=== PATIENT | female | born 1975 | race American Indian/Alaskan Native ===

== ENCOUNTER 2019-02-16 12:57 | Emergency (ER) | payer BC ==
[2019-02-16] MEDS ORDERED: Sodium Chloride 0.9% 10 ML SDV IV PRN (12:59)
[2019-02-16] MEDS ORDERED: Sodium Chloride 0.9% 2.5 ML Syringe FLUSH PRN (12:59)
[2019-02-16] MEDS ORDERED: Sodium Chloride 0.9% 10 ML Syringe FLUSH PRN (12:59)
--- NOTE | 2019-02-16 13:13 | EDM.PDOC ---
ED HPI GENERAL MEDICAL PROBLEM - General Chief Complaint: Neuro Symptoms/Deficits Stated Complaint: COULD NOT WRITE WITH RIGHT HAND Time Seen by Provider: 02/16/19 12:58 Source of Information: Reports: Patient History Limitations: Reports: No Limitations - History of Present Illness INITIAL COMMENTS - FREE TEXT/NARRATIVE: History of present illness: []Patient started having a funny feeling on her right side 8 PM last night while she was at work, she noticed she had difficulty writing. Today she has weakness and lack of coordination in her right arm and leg. Patient denies any visual changes, chest pain, fevers, chills, cough, vomiting or diarrhea. Patient had a cold last week. Review of systems: As per history of present illness and below otherwise all systems reviewed and negative. Past medical history: As per history of present illness and as reviewed below otherwise noncontributory. Surgical history: As per history of present illness and as reviewed below otherwise noncontributory. Social history: No reported history of drug or alcohol abuse. Family history: As per history of present illness and as reviewed below otherwise noncontributory. Physical exam: General: Well developed, well nourished in NAD HEENT: Atraumatic, normocephalic, pupils reactive, negative for conjunctival pallor or scleral icterus, mucous membranes moist, throat clear, neck supple, nontender, trachea midline. Lungs: Clear to auscultation, breath sounds equal bilaterally, chest nontender. Heart: S1S2, regular, negative for clicks, rubs, or JVD. Abdomen: NABS, Soft, nondistended, nontender. Negative for masses or hepatosplenomegaly. Negative for costovertebral tenderness. Pelvis: Stable nontender. Genitourinary: Deferred. Rectal: Deferred. Extremities: Atraumatic, negative for cords or calf pain. Neurovascular unremarkable. Neuro: Awake, alert, oriented. Cranial nerves II through XII unremarkable. Cerebellum unremarkable. Motor and sensory unremarkable throughout. Right-sided upper extremity shows drift and ataxia with decreased sensation and mild 4/5 weakness. NIH score=4 Skin:warm and dry Diagnostics: CT showing- old lacunar left infarct and scattered hypodensities, CBC, chemistry , EKG, TSH, chest x-ray, CTA head and neck showing no clot Therapeutics: Potassium IV and oral ED Course: Consulted Dr. Barahona at [facility] and she recommended doing a CTA to justify transfer to [place] if the CT was negative she recommended going to [facility] for stroke and further workup. Impression: Right-sided weakness, hypokalemia, elevated troponin, old lacunar infarct on the left, scattered hypodensities noted concerning for MS Prescriptions: None Plan: Transfer to [facility] Dr. Puckett accepted Definitive disposition and diagnosis as appropriate pending reevaluation and review of above. - Related Data Allergies Allergy/AdvReac Type Severity Reaction Status Date / Time nitrofurantoin Allergy Other Verified 02/16/19 13:34 [From Furadantin] Sulfa (Sulfonamide Allergy Other Verified 02/16/19 13:34 Antibiotics) Home Meds: Home Meds Multivitamin [Multivitamins] 1 each PO DAILY 02/16/19 [History] ED ROS GENERAL - Review of Systems Review Of Systems: See Below ED EXAM, NEURO - Physical Exam Exam: See Below Course - Vital Signs Last Recorded V/S: Last Vital Signs Temp 98.0 F 02/16/19 13:36 Pulse 68 02/16/19 15:11 Resp 14 02/16/19 15:11 BP 173/96 H 02/16/19 15:11 Pulse Ox 97 02/16/19 15:11 - Orders/Labs/Meds Orders: Active Orders 24 hr Category Date Time Status Assess Neurological Status [RC] ASDIRECTED Care 02/16/19 12:59 Active Bedrest [RC] ASDIRECTED Care 02/16/19 12:59 Active Cardiac Monitoring [RC] . DIRECTED Care 02/16/19 12:59 Active EKG Documentation Completion [RC] STAT Care 02/16/19 12:59 Active Height and Weight [RC] UPON Care 02/16/19 12:59 Active Initiate Acute Stroke Protocol [RC] STAT Care 02/16/19 12:59 Active NIH Stroke Scale [RC] ASDIRECTED Care 02/16/19 12:59 Active Nursing Bedside Swallow Screen [RC] ASDIRECTED Care 02/16/19 12:59 Active Oxygen Therapy [RC] ASDIRECTED Care 02/16/19 12:59 Active Stroke Education, General [RC] Click to Edit Care 02/16/19 12:59 Active Vital Signs [RC] Q15M Care 02/16/19 12:59 Active Sodium Chloride 0.9% [Normal Saline] Med 02/16/19 12:59 Active 10 ml IV ASDIRECTED PRN Sodium Chloride 0.9% [Saline Flush] Med 02/16/19 12:59 Active 10 ml FLUSH ASDIRECTED PRN Sodium Chloride 0.9% [Saline Flush] Med 02/16/19 12:59 Active 2.5 ml FLUSH ASDIRECTED PRN Sodium Chloride 0.9% with KCl [Normal Saline with 40 Med 02/16/19 14:00 Active mEq KCl] 1,000 ml IV ASDIRECTED Peripheral IV Insertion Adult [OM.PC] Stat Ot 02/16/19 12:59 Ordered Peripheral IV Insertion Adult [OM.PC] Stat Ot 02/16/19 12:59 Ordered Medication Orders Potassium Chloride/Sodium Chloride (Normal Saline With 40 Meq Kcl) 1,000 mls @ 999 mls/hr IV ASDIRECTED JAVI Last Admin: 02/16/19 14:42 Dose: 250 mls/hr Sodium Chloride (Saline Flush) 10 ml FLUSH ASDIRECTED PRN PRN Reason: Keep Vein Open Sodium Chloride (Saline Flush) 2.5 ml FLUSH ASDIRECTED PRN PRN Reason: Keep Vein Open Sodium Chloride (Normal Saline) 10 ml IV ASDIRECTED PRN PRN Reason: IV Use Labs: Laboratory Tests 02/16/19 02/16/19 02/16/19 Range/Units 13:00 13:00 13:00 WBC 6.79 (4.0-11.0) K/uL RBC 4.58 (4.30-5.90) M/uL Hgb 14.5 (12.0-16.0) g/dL Hct 42.6 (36.0-46.0) % MCV 93.0 (80.0-98.0) fL MCH 31.7 (27.0-32.0) pg MCHC 34.0 (31.0-37.0) g/dL RDW Std Deviation 55.0 (28.0-62.0) fl RDW Coeff of Amaury 16 H (11.0-15.0) % Plt Count 271 (150-400) K/uL MPV 11.10 (7.40-12.00) fL Neut % (Auto) 66.6 (48.0-80.0) % Lymph % (Auto) 24.3 (16.0-40.0) % [place] % (Auto) 8.1 (0.0-15.0) % Eos % (Auto) 0.7 (0.0-7.0) % Baso % (Auto) 0.3 (0.0-1.5) % Neut # (Auto) 4.5 (1.4-5.7) K/uL Lymph # (Auto) 1.7 (0.6-2.4) K/uL [place] # (Auto) 0.6 (0.0-0.8) K/uL Eos # (Auto) 0.1 (0.0-0.7) K/uL Baso # (Auto) 0.0 (0.0-0.1) K/uL Nucleated RBC % 0.0 /100WBC Nucleated RBCs # 0 K/uL INR 0.96 APTT 25.0 (18.6-31.3) SEC Sodium 140 (136-145) mmol/L Potassium 2.2 L* (3.5-5.1) mmol/L Chloride 100 (98-107) mmol/L Carbon Dioxide 29.9 (21.0-32.0) mmol/L BUN 9 (7.0-18.0) mg/dL Creatinine 0.8 (0.6-1.0) mg/dL Est Cr Clr Drug Dosing 69.13 mL/min Estimated GFR (MDRD) > 60.0 ml/min Glucose 106 (74-106) mg/dL Calcium 8.6 (8.5-10.1) mg/dL Magnesium 2.0 (1.8-2.4) mg/dL Total Bilirubin 0.7 (0.2-1.0) mg/dL AST 29 (15-37) IU/L ALT 28 (14-63) IU/L Alkaline Phosphatase 105 (46-116) U/L Troponin I 0.122 H* (0.000-0.056) ng/mL Total Protein 8.5 H (6.4-8.2) g/dL Albumin 3.8 (3.4-5.0) g/dL Globulin 4.7 H (2.6-4.0) g/dL Albumin/Globulin Ratio 0.8 L (0.9-1.6) TSH 3rd Generation 5.35 H (0.36-3.74) uIU/mL Meds: Medications Generic Name Dose Route Start Last Admin Trade Name Freq PRN Reason Stop Dose Admin Potassium Chloride/Sodium Chloride 1,000 mls @ 999 mls/hr 02/16/19 14:00 04/29 14:42 Normal Saline With 40 Meq Kcl IV 250 mls/hr ASDIRECTED JAVI Administration Sodium Chloride 10 ml 02/16/19 12:59 Saline Flush FLUSH ASDIRECTED PRN Keep Vein Open Sodium Chloride 2.5 ml 02/16/19 12:59 Saline Flush FLUSH ASDIRECTED PRN Keep Vein Open Sodium Chloride 10 ml 02/16/19 12:59 Normal Saline IV ASDIRECTED PRN IV Use Discontinued Medications Generic Name Dose Route Start Last Admin Trade Name Freq PRN Reason Stop Dose Admin Iopamidol 85 ml 02/16/19 14:56 02/16/19 14:57 Isovue Multipack-370 (76%) IVPUSH 02/16/19 14:57 85 ml ONETIME ONE Administration Labetalol HCl 10 mg 02/16/19 14:51 02/16/19 15:26 Normodyne IVPUSH 02/16/19 14:52 Not Given ONETIME ONE Protocol Ondansetron HCl 4 mg 02/16/19 14:05 02/16/19 14:42 Zofran IVPUSH 02/16/19 14:06 4 mg ONETIME ONE Administration Potassium Chloride 40 meq 02/16/19 14:05 02/16/19 14:42 Klor-Con M20 PO 02/16/19 14:06 40 meq ONETIME ONE Administration Departure - Departure Time of Disposition: 15:48 Disposition: DC/Tfer to Acute Hospital 02 Condition: Good Clinical Impression: Right-sided muscle weakness, Hypokalemia, Elevated troponin, Abnormal head CT - Discharge Information *PRESCRIPTION DRUG MONITORING PROGRAM REVIEWED*: No *COPY OF PRESCRIPTION DRUG MONITORING REPORT IN PATIENT JOY: No Referrals: PCP,None [Primary Care Provider] - Forms: ED Department Discharge - My Orders Last 24 Hours: My Active Orders 02/16/19 12:59 Assess Neurological Status [RC] ASDIRECTED Bedrest [RC] ASDIRECTED Cardiac Monitoring [RC] . DIRECTED EKG Documentation Completion [RC] STAT Height and Weight [RC] UPON Initiate Acute Stroke Protocol [RC] STAT NIH Stroke Scale [RC] ASDIRECTED Nursing Bedside Swallow Screen [RC] ASDIRECTED Oxygen Therapy [RC] ASDIRECTED Stroke Education, General [RC] Click to Edit Vital Signs [RC] Q15M Sodium Chloride 0.9% [Normal Saline] 10 ml IV ASDIRECTED PRN Sodium Chloride 0.9% [Saline Flush] 10 ml FLUSH ASDIRECTED PRN Sodium Chloride 0.9% [Saline Flush] 2.5 ml FLUSH ASDIRECTED PRN Peripheral IV Insertion Adult [OM.PC] Stat Peripheral IV Insertion Adult [OM.PC] Stat 02/16/19 14:00 Sodium Chloride 0.9% with KCl [Normal Saline with 40 mEq KCl] 1,000 ml IV ASDIRECTED - Assessment/Plan Last 24 Hours: My Active Orders 02/16/19 12:59 Assess Neurological Status [RC] ASDIRECTED Bedrest [RC] ASDIRECTED Cardiac Monitoring [RC] . DIRECTED EKG Documentation Completion [RC] STAT Height and Weight [RC] UPON Initiate Acute Stroke Protocol [RC] STAT NIH Stroke Scale [RC] ASDIRECTED Nursing Bedside Swallow Screen [RC] ASDIRECTED Oxygen Therapy [RC] ASDIRECTED Stroke Education, General [RC] Click to Edit Vital Signs [RC] Q15M Sodium Chloride 0.9% [Normal Saline] 10 ml IV ASDIRECTED PRN Sodium Chloride 0.9% [Saline Flush] 10 ml FLUSH ASDIRECTED PRN Sodium Chloride 0.9% [Saline Flush] 2.5 ml FLUSH ASDIRECTED PRN Peripheral IV Insertion Adult [OM.PC] Stat Peripheral IV Insertion Adult [OM.PC] Stat 02/16/19 14:00 Sodium Chloride 0.9% with KCl [Normal Saline with 40 mEq KCl] 1,000 ml IV ASDIRECTED
--- NOTE | 2019-02-16 13:19 | CT ---
EXAMINATION: Non contrast CT head. Coronal and sagittal reformats. HISTORY: Stroke code FINDINGS: No evidence of intra or extra axial hemorrhage, mass, midline shift, hydrocephalus or edema. There is likely an old left periventricular lacunar infarct. There are a few very faint periventricular and subcortical white matter hypodensities also noted. No hypoattenuation changes in the major vascular territories to suggest acute infarct. No abnormal intracranial calcifications are detected. No evidence of substantial vascular calcifications. Paranasal sinuses and mastoid air cells are well aerated without substantial findings. Pituitary fossa appears unremarkable. Orbits and globes are symmetric. Calvarium is intact. No evidence of skull fracture. IMPRESSION: 1. No definite acute intracranial findings. 2. Probable small old left periventricular lacunar infarct. 3. There are a few very subtle periventricular and subcortical white matter hypodensities also noted, nonspecific, however given the patient's age MRI follow-up may be beneficial. Above findings were called to the ER at 1:16 PM.
[2019-02-16 13:46] LABS: CHLORIDE,CL 100 mmol/L (98-107); SODIUM,NA 140 mmol/L (136-145)
[2019-02-16] MEDS ORDERED: Sodium Chloride 0.9% with KCl 1,000 ML IV SCH (14:00)
[2019-02-16] MEDS ORDERED: Ondansetron 4 MG/2 ML SDV IVPUSH ONE (14:05)
[2019-02-16] MEDS ORDERED: Potassium Chloride 20 MEQ Tab.ER PO ONE (14:05)
[2019-02-16] MEDS ORDERED: Labetalol 100 MG/20 ML MDV IVPUSH ONE (14:51)
[2019-02-16] MEDS ORDERED: Iopamidol 755 MG/ML 500 ML Multipack Bottle IVPUSH ONE (14:56)
--- NOTE | 2019-02-16 15:44 | CT ---
CT ANGIOGRAM HEAD DATE: 02/16/2019 CLINICAL HISTORY: Patient with focal neurological deficits. TECHNIQUE: Standard helical CT image acquisition through the intracranial circulation following intravenous administration of contrast material with bolus tracking. Multiplanar reconstructed images were performed and interpreted. COMPARISON: CT same day. FINDINGS: There is no cerebral aneurysm or large vessel occlusion. The right internal carotid artery is normal. The right middle cerebral artery and its branches are normal. The right anterior cerebral artery and its branches are normal. The left internal carotid artery is normal. The left middle cerebral artery and its branches are normal. The left anterior cerebral artery and its branches are normal. The anterior communicating artery is well visualized and appears normal. The right vertebral artery and PICA are normal. The left vertebral artery and PICA are normal. The left vertebral artery is dominant. The basilar artery is patent and appears normal. The right posterior cerebral artery is normal. The left posterior cerebral artery is normal. The visualized venous structures are patent. IMPRESSION: Normal CT angiogram of the head. Please note that all CT scans at this facility use dose modulation, iterative reconstruction, and/or weight-based dosing when appropriate to reduce radiation dose to as low as reasonably achievable. Dictated by: Carlos Welch MD @ 02/16/2019 15:41:47 (Electronically Signed)
== END 2019-02-16 16:40 ==
LOC: MW.ED 12:57
DX: E87.6 Hypokalemia (principal); M62.81 Muscle weakness (generalized); R79.89 Other specified abnormal findings of blood chemistry; I25.2 Old myocardial infarction; R93.0 Abnormal findings on diagnostic imaging of skull and head, not elsewhere classified; Z88.1 Allergy status to other antibiotic agents; Z88.2 Allergy status to sulfonamides
CPT/HCPCS: 36415; 70450; 70496; 80053; 83735; 84443; 84484; 85025; 85610; 85730; 93005; 96365; 96366; 96375; 99285; A9270; J2405; J3480; J3490; Q9967

== ENCOUNTER 2020-01-11 16:17 | Emergency (ER) | payer OTHER ==
[2020-01-11] MEDS ORDERED: Sodium Chloride 0.9% 1,000 ML IV ONE (16:41)
[2020-01-11 16:57] LABS: BLOOD UREA NITROGEN,BUN 5 mg/dL (7.0-18.0); CARBON DIOXIDE,CO2 24.3 mmol/L (21.0-32.0); CHLORIDE,CL 103 mmol/L (98-107); GLUCOSE RANDOM 143 mg/dL (74-106); POTASSIUM,K 3.6 mmol/L (3.5-5.1); SODIUM,NA 139 mmol/L (136-145)
--- NOTE | 2020-01-11 17:31 | EDM.PDOC ---
ED [facility] GENERAL MEDICAL PROBLEM - General Chief Complaint: Gastrointestinal Problem Stated Complaint: REFERRED BY Time Seen by Provider: 01/11/20 16:26 - History of Present Illness INITIAL COMMENTS - FREE TEXT/NARRATIVE: HISTORY AND PHYSICAL: History of present illness: 44-year-old female with a past medical history of clotting disorder that causes her to be hypercoagulable, she does not know the name, recent stroke, presents to the emergency department with vaginal bleeding. Patient reports that she has had heavy vaginal bleeding for the last 5 days or so. She saw her primary care doctor who brigida her H&H and found her to be severely anemic. She was sent to the emergency department for further evaluation given that she is anticoagulated on Eliquis. Outpatient labs that she read so shows that her hemoglobin is 8.4, hematocrit is 29.0, and her platelets are normal at 402. She is currently on Eliquis 5 mg twice daily. She also is treated for her hyperlipidemia with Lipitor and her high blood pressure with amlodipine. She also takes metoprolol. She has had painless bleeding. It has been quite heavy. She denies any other associated signs or symptoms. No other modifying, aggravating or alleviating factors. Review of systems: A 10-point review of systems, other than pertinent positives and negatives as stated per HPI, is otherwise negative. Past medical history: As per history of present illness and as reviewed below otherwise noncontributory. Surgical history: As per history of present illness and as reviewed below otherwise noncontributory. Social history: No reported history of drug or alcohol abuse. Family history: As per history of present illness and as reviewed below otherwise noncontributory. Physical exam: VITAL SIGNS: Reviewed. GENERAL: The patient appears to be anxious and is pale. She is in mild to moderate distress. HEAD: No signs of head trauma. EYES: Pupils are equal. Extraocular motions intact. EARS: Hearing grossly intact. MOUTH: Oropharynx is normal. NECK: No adenopathy, no JVD. CHEST: Chest with clear breath sounds bilaterally. No wheezes, rales, or rhonchi. CARDIAC: Regular rate and rhythm. Normal S1 and S2, without murmurs, gallops, or rubs. VASCULAR: Peripheral pulses normal and equal in all extremities. ABDOMEN: Soft, without detectable tenderness. No sign of distention. No rebound or guarding, and no masses palpated. MUSCULOSKELETAL: Good range of motion of all major joints. Extremities without clubbing, cyanosis or edema. NEUROLOGIC EXAM: Alert and oriented x 3. No focal sensory or motor deficits. Speech normal. Follows commands. PSYCHIATRIC: Mood normal. SKIN: No rash or lesions. The skin is pale. Initial Differential Diagnosis & Plan: Dysfunctional uterine bleeding, , over anticoagulation, acute renal failure causing abnormal metabolism of her drugs, acute liver failure causing abnormal metabolism of her drugs. The patient is anticoagulated and has vaginal bleeding. I do not feel it appropriate to give TXA in the situation as I do not know her clotting disorder or her hypercoagulability problem. She is quite anemic. I will send CBC, type and screen, and check a status. I will also check her renal function and liver function. Definitive disposition and diagnosis as appropriate pending reevaluation and review of above. lower abdomen Pain Score (Numeric/FACES): 2 - Related Data Allergies Allergy/AdvReac Type Severity Reaction Status Date / Time nitrofurantoin Allergy Other Verified 01/11/20 16:43 [From Furadantin] Sulfa (Sulfonamide Allergy Other Verified 01/11/20 16:43 Antibiotics) Home Meds: Home Meds Multivitamin [Multivitamins] 1 each PO DAILY 02/16/19 [History] Amitriptyline [Elavil] 1 tab PO DAILY 01/11/20 [History] Apixaban [Eliquis] 5 mg PO BID 01/11/20 [History] Cyanocobalamin (Vitamin B-12) [Vitamin B-12] 2 dose PO DAILY 01/11/20 [History] Metoprolol Succinate [[place] Sprinkle] 1 tab PO DAILY 01/11/20 [History] Potassium Chloride 1 tab PO DAILY 01/11/20 [History] Tranexamic Acid [Lysteda] 1,300 mg PO TID #30 tablet 01/11/20 [Rx] Past Medical History HEENT History: Reports: None Cardiovascular History: Reports: None, Hypertension Respiratory History: Reports: None Gastrointestinal History: Reports: None Genitourinary History: Reports: None [employer] History: Reports: None Musculoskeletal History: Reports: None Neurological History: Reports: CVA Psychiatric History: Reports: None Endocrine/Metabolic History: Reports: Other (See Below) Other Endocrine/Metabolic History: lupus Hematologic History: Reports: Other (See Below) Other Hematologic History: "clotting disorder" Oncologic (Cancer) History: Reports: None Dermatologic History: Reports: None - Infectious Disease History Infectious Disease History: Reports: Chicken Pox, Shingles - Past Surgical History Head Surgeries/Procedures: Reports: None HEENT Surgical History: Reports: None Cardiovascular Surgical History: Reports: None Respiratory Surgical History: Reports: None GI Surgical History: Reports: Cholecystectomy Female Surgical History: Reports: None Endocrine Surgical History: Reports: None Neurological Surgical History: Reports: None Musculoskeletal Surgical History: Reports: None Oncologic Surgical History: Reports: None Dermatological Surgical History: Reports: None Social & Family History - Family History Family Medical History: Noncontributory - Tobacco Use Smoking Status *Q: Current Every Day Smoker Years of Tobacco use: 20 Packs/Tins Daily: 0.4 - Caffeine Use Caffeine Use: Reports: None - Recreational Drug Use Recreational Drug Use: No ED ROS GENERAL - Review of Systems Review Of Systems: Unable To Obtain (noted) Reason Not Obtained: noted ED EXAM, RENAL/ - Physical Exam Exam: Not Obtained (see note) Course - Vital Signs Last Recorded V/S: Last Vital Signs Temp 96.2 F L 01/11/20 16:46 Pulse 116 H 01/11/20 16:46 Resp 16 01/11/20 16:46 BP 149/103 H 01/11/20 16:46 Pulse Ox 99 01/11/20 16:46 - Orders/Labs/Meds Orders: Active Orders 24 hr Category Date Time Status EKG 12 Lead [EKG Documentation Completion] [RC] STAT Care 01/11/20 16:40 Active TRAINING ANALYST lmtd or bladder [Pelvis Non OB Ltd] [US] Stat Exams 01/11/20 16:47 Taken Labs: Laboratory Tests 01/11/20 01/11/20 01/11/20 Range/Units 16:28 16:28 16:28 WBC 8.78 (4.0-11.0) K/uL RBC 3.49 L (4.30-5.90) M/uL Hgb 8.5 L (12.0-16.0) g/dL Hct 29.2 L (36.0-46.0) % MCV 83.7 (80.0-98.0) fL MCH 24.4 L (27.0-32.0) pg MCHC 29.1 L (31.0-37.0) g/dL RDW Std Deviation 57.2 (28.0-62.0) fl RDW Coeff of Amaury 19 H (11.0-15.0) % Plt Count 434 H (150-400) K/uL MPV 10.40 (7.40-12.00) fL Neut % (Auto) 71.8 (48.0-80.0) % Lymph % (Auto) 18.3 (16.0-40.0) % Navarro % (Auto) 8.1 (0.0-15.0) % Eos % (Auto) 1.5 (0.0-7.0) % Baso % (Auto) 0.3 (0.0-1.5) % Neut # (Auto) 6.3 H (1.4-5.7) K/uL Lymph # (Auto) 1.6 (0.6-2.4) K/uL Navarro # (Auto) 0.7 (0.0-0.8) K/uL Eos # (Auto) 0.1 (0.0-0.7) K/uL Baso # (Auto) 0.0 (0.0-0.1) K/uL Nucleated RBC % 0.0 /100WBC Nucleated RBCs # 0 K/uL INR 1.04 APTT 25.7 (18.6-31.3) SEC Sodium 139 (136-145) mmol/L Potassium 3.6 (3.5-5.1) mmol/L Chloride 103 (98-107) mmol/L Carbon Dioxide 24.3 (21.0-32.0) mmol/L BUN 5 L (7.0-18.0) mg/dL Creatinine 0.9 (0.6-1.0) mg/dL Est Cr Clr Drug Dosing TNP Estimated GFR (MDRD) > 60.0 ml/min Glucose 143 H (74-106) mg/dL Calcium 8.5 (8.5-10.1) mg/dL Total Bilirubin 0.5 (0.2-1.0) mg/dL AST 100 H (15-37) IU/L ALT 68 H (14-63) IU/L Alkaline Phosphatase 142 H (46-116) U/L Total Protein 8.4 H (6.4-8.2) g/dL Albumin 3.6 (3.4-5.0) g/dL Globulin 4.8 H (2.6-4.0) g/dL Albumin/Globulin Ratio 0.8 L (0.9-1.6) Blood Type Antibody Screen 01/11/20 Range/Units 16:50 WBC (4.0-11.0) K/uL RBC (4.30-5.90) M/uL Hgb (12.0-16.0) g/dL Hct (36.0-46.0) % MCV (80.0-98.0) fL MCH (27.0-32.0) pg MCHC (31.0-37.0) g/dL RDW Std Deviation (28.0-62.0) fl RDW Coeff of Amaury (11.0-15.0) % Plt Count (150-400) K/uL MPV (7.40-12.00) fL Neut % (Auto) (48.0-80.0) % Lymph % (Auto) (16.0-40.0) % Navarro % (Auto) (0.0-15.0) % Eos % (Auto) (0.0-7.0) % Baso % (Auto) (0.0-1.5) % Neut # (Auto) (1.4-5.7) K/uL Lymph # (Auto) (0.6-2.4) K/uL Navarro # (Auto) (0.0-0.8) K/uL Eos # (Auto) (0.0-0.7) K/uL Baso # (Auto) (0.0-0.1) K/uL Nucleated RBC % /100WBC Nucleated RBCs # K/uL INR APTT (18.6-31.3) SEC Sodium (136-145) mmol/L Potassium (3.5-5.1) mmol/L Chloride (98-107) mmol/L Carbon Dioxide (21.0-32.0) mmol/L BUN (7.0-18.0) mg/dL Creatinine (0.6-1.0) mg/dL Est Cr Clr Drug Dosing Estimated GFR (MDRD) ml/min Glucose (74-106) mg/dL Calcium (8.5-10.1) mg/dL Total Bilirubin (0.2-1.0) mg/dL AST (15-37) IU/L ALT (14-63) IU/L Alkaline Phosphatase (46-116) U/L Total Protein (6.4-8.2) g/dL Albumin (3.4-5.0) g/dL Globulin (2.6-4.0) g/dL Albumin/Globulin Ratio (0.9-1.6) Blood Type O POSITIVE Antibody Screen NEGATIVE Meds: Medications Discontinued Medications Generic Name Dose Route Start Last Admin Trade Name Freq PRN Reason Stop Dose Admin Sodium Chloride 1,000 mls @ 1,000 mls/hr 01/11/20 16:41 01/11/20 16:57 Normal Saline IV 01/11/20 17:40 1,000 mls/hr .Bolus ONE Administration Tranexamic Acid 1,000 mg/ 110 mls @ 600 mls/hr 01/11/20 17:48 Sodium Chloride IV 01/11/20 17:58 ONETIME ONE - Re-Assessments/Exams Free Text/Narrative Re-Assessment/Exam: 01/11/20 17:[address] Pate, [employer] physician, and she agrees that the patient should have an ultrasound, should be started on TXA, and go home on Lysteda. She recommends follow-up this week in her clinic. We will arrange that. 01/11/20 18:20 The ultrasound does not show evidence of high risk features for admission or need for emergent hysterectomy. The patient will follow up with the E[employer] this week. We have given her an iron infusion and an infusion of TXA to stop her bleeding and to help with her anemia. She does not require blood transfusion at this point. Her EKG is nonischemic. She does not have electrolyte abnormalities. Her INR and PTT are not significantly elevated to indicate that she has a coagulopathy. There is no evidence of bleeding diathesis. 12 lead EKG interpretation Obtained: January 11, 2020 at 1654 hrs. Rhythm: Sinus Rate: 99 [place]: Normal Intervals: Normal ST/T Segments: T wave inversions in leads V1 through V6. Interpretation: Highness rhythm with T wave inversions in leads V1 through V6. My diagnostic impression: 1. Dysfunctional uterine bleeding 2. Acute hemorrhagic anemia not requiring blood transfusion 3. History of clotting disorder unclear type requiring anticoagulation to prevent stroke 4. Adverse bleeding events secondary to therapeutic anticoagulation Departure - Departure Time of Disposition: 18:26 Disposition: Home, Self-Care 01 Clinical Impression: Dysfunctional uterine bleeding, Anticoagulants causing adverse effect in therapeutic use, Anemia - Discharge Information *PRESCRIPTION DRUG MONITORING PROGRAM REVIEWED*: Not Applicable *COPY OF PRESCRIPTION DRUG MONITORING REPORT IN PATIENT JOY: Not Applicable Prescriptions: Tranexamic Acid [Lysteda] 1,300 mg PO TID #30 tablet Instructions: Anemia, Dysfunctional Uterine Bleeding Referrals: Tonie Lemus MD [Primary Care Provider] - Maryanne Silva MD [Physician] - Forms: ED Department Discharge Additional Instructions: The following information is given to patients seen in the emergency department who are being discharged to home. This information is to outline your options for follow-up care. We provide all patients seen in our emergency department with a follow-up referral. The need for follow-up, as well as the timing and circumstances, are variable depending upon the specifics of your emergency department visit. If you don't have a primary care physician on staff, we will provide you with a referral. We always advise you to contact your personal physician following an emergency department visit to inform them of the circumstance of the visit and for follow-up with them and/or the need for any referrals to a consulting specialist. The emergency department will also refer you to a specialist when appropriate. This referral assures that you have the opportunity for follow-up care with a specialist. All of these measure are taken in an effort to provide you with optimal care, which includes your follow-up. Under all circumstances we always encourage you to contact your private physician who remains a resource for coordinating your care. When calling for follow-up care, please make the office aware that this follow-up is from your recent emergency room visit. If for any reason you are refused follow-up, please contact the [facility] Emergency Department at and asked to speak to the emergency department charge nurse. Thank you for coming to [facility] emergency department today. It was Dr. Marley's pleasure to take care of you. Your labs show that you are anemic but you are not getting worse. We have given you a medication that will help stop your bleeding. This is called Lysteda (TXA). We have also given you an iron injection in the emergency department to help you build more red blood cells at home. Please follow-up this week with the EYE [employer]. Dr. Silva was consulted on your case today and would like you to follow-up with her this week in clinic. Please return immediately to the emergency department for fever , feeling like you are going to pass out, worsening bleeding, or any other concerns. [facility] Dr. Silva's office [address] [place] [id number] Sepsis Event Note - Evaluation Sepsis Screening Result: No Definite Risk - Focused Exam Vital Signs: Vital Signs Temp Pulse Resp BP Pulse Ox 01/11/20 16:46 96.2 F L 116 H 16 149/103 H 99 Date Exam was Performed: 01/11/20 Time Exam was Performed: 18:10 - My Orders Last 24 Hours: My Active Orders 01/11/20 16:40 EKG 12 Lead [EKG Documentation Completion] [RC] STAT 01/11/20 16:47 TRAINING ANALYST lmtd or bladder [Pelvis Non OB Ltd] [US] Stat - Assessment/Plan Last 24 Hours: My Active Orders 01/11/20 16:40 EKG 12 Lead [EKG Documentation Completion] [RC] STAT 01/11/20 16:47 TRAINING ANALYST lmtd or bladder [Pelvis Non OB Ltd] [US] Stat
[2020-01-11] MEDS ORDERED: Tranexamic Acid 1,000 MG in Sodium Chloride 0.9% 100 ML IV ONE (17:48)
[2020-01-11] MEDS ORDERED: Iron Sucrose Complex 100 MG/5 ML SDV IVPUSH ONE (18:11)
--- NOTE | 2020-01-11 18:24 | US ---
INDICATION: Heavy bleeding, on blood thinners TECHNIQUE: Ultrasound pelvis transabdominal. Real-time ross scale sonographic images with color Doppler imaging of the ovaries were obtained. COMPARISON: None FINDINGS: Uterus: 8.8 x 4.4 x 6.1 cm. There is a hypoechoic intramural fibroid along the left aspect of the uterus measuring 2.5 cm. Endometrium: 3 mm. No sign of endometrial mass or fluid present. Right ovary: 2.3 x 1.8 x 2.6 cm. Color Doppler exam of the right ovary is limited. Left ovary: 2.6 x 1.8 x 1.3 cm. Color Doppler exam of the left ovary is limited. Cul-de-sac: No significant ascites noted. IMPRESSION: 1. There is a hypoechoic intramural fibroid along the left aspect of the uterus measuring 2.5 cm. Dictated by Martín Rogel MD @ 01/11/2020 6:21:47 PM Dictated by: Martín Rogel MD @ 01/11/2020 18:22:07 (Electronically Signed)
[2020-01-11] MEDS ORDERED: Ondansetron 4 MG/2 ML SDV IVPUSH ONE (18:42)
== END 2020-01-11 19:08 | disposition home or self-care (01) ==
LOC: MW.ED 16:17
DX: N93.8 Other specified abnormal uterine and vaginal bleeding (principal); T45.515A Adverse effect of anticoagulants, initial encounter; D64.9 Anemia, unspecified; I10 Essential (primary) hypertension; F17.210 Nicotine dependence, cigarettes, uncomplicated; Z88.1 Allergy status to other antibiotic agents; Z88.2 Allergy status to sulfonamides; Z79.899 Other long term (current) drug therapy; Z86.73 Personal history of transient ischemic attack (TIA), and cerebral infarction without residual deficits
CPT/HCPCS: 36415; 76857; 80053; 83550; 85025; 85610; 85730; 86850; 86900; 86901; 93005; 96374; 96375; 99284; J1756; J2405; J7030; J7050; 99283

== ENCOUNTER 2020-10-16 17:30 | Emergency (ER) | payer OTHER ==
[2020-10-16 18:42] LABS: BLOOD UREA NITROGEN,BUN 5 mg/dL (7.0-18.0); CARBON DIOXIDE,CO2 21.1 mmol/L (21.0-32.0); CHLORIDE,CL 102 mmol/L (98-107); GLUCOSE RANDOM 105 mg/dL (74-106); POTASSIUM,K 2.9 mmol/L (3.5-5.1); SODIUM,NA 138 mmol/L (136-145)
[2020-10-16] MEDS ORDERED: Potassium Chloride 10% 20 MEQ/15 ML Soln 30 ML UD Cup PO ONE (19:19)
--- NOTE | 2020-10-16 22:38 | EDM.PDOC ---
ED HPI GENERAL MEDICAL PROBLEM - General Chief Complaint: General Stated Complaint: MERRY REFERRAL Time Seen by Provider: 10/16/20 19:19 - History of Present Illness INITIAL COMMENTS - FREE TEXT/NARRATIVE: CHIEF COMPLAINT(S): Sent in by primary care physician HISTORY OF PRESENT ILLNESS: This is a 45-year-old woman with a past medical history of lupus and prior CVA who comes to the emergency department with a chief complaint of sent in by primary care physician. The patient states that she was sent in by Dr. Lemus for a blood transfusion and was told her potassium was low. She states that she woke up this morning and started to feel tingling and pain in her hands and feet. She describes the pain in her hands and feet as like stabbing sensation rated 4-5 out of 10. She denies any radiation of this pain. She has not yet tried anything for the pain therefore there are no relieving factors. There is no exacerbating symptoms of this pain. She denies any injury to her hands or feet she denies any chest pain, shortness of breath, diaphoresis, nausea or vomiting. She states that she is mildly constipated but denies any melena or hematochezia. She denies any prior history of DVT or PE. She denies any dizziness or syncope. REVIEW OF SYSTEMS: Constitutional: Denies fever, chills. Eyes: Denies eye pain Ears, Nose, Mouth, & Throat: Denies earache Cardiovascular: Denies chest pain Respiratory: Denies shortness of breath Gastrointestinal: Denies Nausea, vomiting, diarrhea, hematochezia. Genitourinary: Denies hematuria Skin:Denies a rash MSK: Positive for hand and foot pain Neurological: Positive for tingling in hands and feet denies blurred vision, numbness, weakness Psychiatric: Denies depression PAST MEDICAL HISTORY: As per history of present illness and as reviewed below otherwise noncontributory. SURGICAL HISTORY: As per history of present illness and as reviewed below otherwise noncontributory. SOCIAL HISTORY: As per history of present illness and as reviewed below otherwise noncontributory. FAMILY HISTORY: As per history of present illness and as reviewed below otherwise noncontributory. EXAMINATION OF ORGAN SYSTEMS/BODY AREAS: Constitutional: Blood pressure was 111/70, heart rate 112, respiratory rate 15 with an oxygen saturation of 98% on room air. Temperature 36.3 General: Overall well-appearing woman who is in no acute distress. Psychiatric: Appropriate mood and affect. Eyes: No scleral icterus or conjunctival erythema ENMT: Moist mucous membranes. No pharyngeal erythema Cardiovascular: Regular, rate, and rhythm. No gallops, murmurs, or rubs. Bilateral upper extremity pulses symmetric and intact. No peripheral edema. No JVD. Respiratory: Lungs clear to auscultation bilaterally. No wheezes, rales, or rhonchi. Gastrointestinal: Soft, non-tender, non-distended. Normoactive bowel sounds Genitourinary: No suprapubic tenderness Musculoskeletal: Normal range of motion. There is mild tenderness to the feet and hands bilaterally without any laterality. There is no obvious changes or deformity. Skin: No lesions or abrasions. Neurological: Alert, GCS 15 strength and sensation grossly intact in upper and lower extremities bilaterally MEDICAL DECISION MAKING AND COURSE IN THE ED WITH INTERPRETATION/REVIEW OF DIAGNOSTIC STUDIES: This is a 45-year-old woman with a past medical history of lupus and CVA who comes to the emergency department with bilateral hand and foot pain sent in by prior primary care addition for a blood transfusion hypokalemia. There were no labs sent with the patient therefore we will repeat labs here and reevaluate. EKG was obtained which did not reveal any acute signs of ischemia or signs of hyper or hypokalemia. Laboratory: CBC reveals a leukocytosis of 13.93 with neutrophilic predominance without any segmented neutrophils or left shift. Hemoglobin is 9.4 and hematocrit is 30.5. Her hemoglobin appears to be increased from prior at 01/11/2020 CMP reveals hypokalemia 2.9, hypocalcemia at 8.4, mild AST elevation at 124 and total bilirubin of 2.5 with alkaline phosphatase of 307. The patient does have a history of transaminitis and her bilirubin is mildly elevated. There is hypoalbuminemia at 2.9. Time: 1950 Twelve-lead EKG interpreted by myself. Normal sinus rhythm at a rate of 99beats per minute. Left axis. MI interval is 134ms. QRS duration is 99ms. ST segments are normal without elevations or depressions. There are T wave inversions in leads III, aVF, V2, V3, V4, V5, V6 no Q waves present. Hypertrophy not noted. No changes demonstrated from prior EKG dated 01/11/2020. Interpretation: The sinus rhythm with inferior and lateral T wave inversions unchanged from prior After labs I did provide the patient with potassium by mouth. We will obtain an EKG and repeat potassium after a period of observation. I do not believe the patient requires any transfusion at this time or admission as the patient denies any melena, hematochezia, hematemesis or vaginal bleeding. Her hemoglobin does appear to be improved from prior. Although her bilirubin is elevated she denies any abdominal pain and has no icterus on examination. This can be followed up outpatient. Repeat potassium was 4.7. On reevaluation after potassium supplementation the patient symptoms had completely resolved. I did discuss her at this time I do not believe she needs to be admitted. I discussed with her that she is stable for discharge. She is to follow-up with her primary care physician for further evaluation and treatment. She was amenable discharge and had no further questions. Repeat EKG did not reveal any changes. Time: 2226 Twelve-lead EKG interpreted by myself. Sinus tachycardia at a rate of 106beats per minute. Left axis. MI interval is 133ms. QRS duration is 93ms. ST segments are normal without elevations or depressions. There are T wave inversions in leads II, 3, aVF, V2 through V6 no Q waves present. No changes demonstrated from prior EKG dated 01/11/2020. Interpretation: Sinus rhythm with inferior and lateral T wave inversions unchanged from prior DISPOSITION: The patient was discharged home in stable condition. The patient will follow up with PCP within 2 to 3 days CONDITION: Fair PROCEDURES: None FINAL IMPRESSION(S)/DIAGNOSES: 1. Acute bilateral hand and foot pain likely secondary to hypokalemia 2. Acute hypokalemia Dick Andrews M.D. Allextremities Pain Score (Numeric/FACES): 7 - Related Data Allergies Allergy/AdvReac Type Severity Reaction Status Date / Time nitrofurantoin Allergy Other Verified 10/16/20 17:41 [From Furadantin] Sulfa (Sulfonamide Allergy Other Verified 10/16/20 17:41 Antibiotics) Home Meds: Home Meds Multivitamin [Multivitamins] 1 each PO DAILY 02/16/19 [History] Apixaban [Eliquis] 5 mg PO BID 01/11/20 [History] Cyanocobalamin (Vitamin B-12) [Vitamin B-12] 2 dose PO DAILY 01/11/20 [History] Metoprolol Succinate [[place] Sprinkle] 1 tab PO DAILY 01/11/20 [History] Potassium Chloride 1 tab PO DAILY 01/11/20 [History] Past Medical History HEENT History: Reports: None Cardiovascular History: Reports: None, Hypertension Respiratory History: Reports: None Gastrointestinal History: Reports: None Genitourinary History: Reports: None GRAIN MIXER History: Reports: None Musculoskeletal History: Reports: None Neurological History: Reports: CVA Psychiatric History: Reports: None Endocrine/Metabolic History: Reports: Other (See Below) Other Endocrine/Metabolic History: lupus Hematologic History: Reports: Other (See Below) Other Hematologic History: "clotting disorder" Oncologic (Cancer) History: Reports: None Dermatologic History: Reports: None - Infectious Disease History Infectious Disease History: Reports: Chicken Pox, Shingles - Past Surgical History Head Surgeries/Procedures: Reports: None HEENT Surgical History: Reports: None Cardiovascular Surgical History: Reports: None Respiratory Surgical History: Reports: None GI Surgical History: Reports: Cholecystectomy Female Surgical History: Reports: None Endocrine Surgical History: Reports: None Neurological Surgical History: Reports: None Musculoskeletal Surgical History: Reports: None Oncologic Surgical History: Reports: None Dermatological Surgical History: Reports: None Social & Family History - Family History Family Medical History: No Pertinent Family History - Tobacco Use Tobacco Use Status *Q: Never Tobacco User - Caffeine Use Caffeine Use: Reports: None ED ROS GENERAL - Review of Systems Review Of Systems: See Below ED EXAM, GENERAL - Physical Exam Exam: See Below Course - Vital Signs Last Recorded V/S: Last Vital Signs Temp 36.1 C 10/16/20 22:48 Pulse 108 H 10/16/20 22:48 Resp 16 10/16/20 22:48 BP 115/79 10/16/20 22:48 Pulse Ox 99 10/16/20 22:48 - Orders/Labs/Meds Labs: Laboratory Tests 10/16/20 10/16/20 10/16/20 Range/Units 17:58 17:58 17:58 WBC 13.93 H (4.0-11.0) K/uL RBC 3.32 L (4.30-5.90) M/uL Hgb 9.4 L (12.0-16.0) g/dL Hct 30.5 L (36.0-46.0) % MCV 91.9 (80.0-98.0) fL MCH 28.3 (27.0-32.0) pg MCHC 30.8 L (31.0-37.0) g/dL RDW Std Deviation 61.5 (28.0-62.0) fl RDW Coeff of Amaury 18 H (11.0-15.0) % Plt Count 464 H (150-400) K/uL MPV 9.90 (7.40-12.00) fL Neut % (Auto) 85.7 H (48.0-80.0) % Lymph % (Auto) 9.0 L (16.0-40.0) % Mclennan % (Auto) 4.6 (0.0-15.0) % Eos % (Auto) 0.6 (0.0-7.0) % Baso % (Auto) 0.1 (0.0-1.5) % Neut # (Auto) 11.9 H (1.4-5.7) K/uL Lymph # (Auto) 1.3 (0.6-2.4) K/uL Mclennan # (Auto) 0.6 (0.0-0.8) K/uL Eos # (Auto) 0.1 (0.0-0.7) K/uL Baso # (Auto) 0.0 (0.0-0.1) K/uL Nucleated RBC % 0.0 /100WBC Nucleated RBCs # 0 K/uL INR 1.40 Sodium 138 (136-145) mmol/L Potassium 2.9 L (3.5-5.1) mmol/L Chloride 102 (98-107) mmol/L Carbon Dioxide 21.1 (21.0-32.0) mmol/L BUN 5 L (7.0-18.0) mg/dL Creatinine 0.9 (0.6-1.0) mg/dL Est Cr Clr Drug Dosing 58.83 mL/min Estimated GFR (MDRD) > 60.0 ml/min Glucose 105 (74-106) mg/dL Calcium 8.4 L (8.5-10.1) mg/dL Total Bilirubin 2.5 H (0.2-1.0) mg/dL AST 124 H (15-37) IU/L ALT 34 (14-63) IU/L Alkaline Phosphatase 307 H (46-116) U/L Total Protein 8.4 H (6.4-8.2) g/dL Albumin 2.9 L (3.4-5.0) g/dL Globulin 5.5 H (2.6-4.0) g/dL Albumin/Globulin Ratio 0.5 L (0.9-1.6) Blood Type Antibody Screen 10/16/20 10/16/20 Range/Units 17:58 21:24 WBC (4.0-11.0) K/uL RBC (4.30-5.90) M/uL Hgb (12.0-16.0) g/dL Hct (36.0-46.0) % MCV (80.0-98.0) fL MCH (27.0-32.0) pg MCHC (31.0-37.0) g/dL RDW Std Deviation (28.0-62.0) fl RDW Coeff of Amaury (11.0-15.0) % Plt Count (150-400) K/uL MPV (7.40-12.00) fL Neut % (Auto) (48.0-80.0) % Lymph % (Auto) (16.0-40.0) % Mclennan % (Auto) (0.0-15.0) % Eos % (Auto) (0.0-7.0) % Baso % (Auto) (0.0-1.5) % Neut # (Auto) (1.4-5.7) K/uL Lymph # (Auto) (0.6-2.4) K/uL Mclennan # (Auto) (0.0-0.8) K/uL Eos # (Auto) (0.0-0.7) K/uL Baso # (Auto) (0.0-0.1) K/uL Nucleated RBC % /100WBC Nucleated RBCs # K/uL INR Sodium (136-145) mmol/L Potassium 4.7 (3.5-5.1) mmol/L Chloride (98-107) mmol/L Carbon Dioxide (21.0-32.0) mmol/L BUN (7.0-18.0) mg/dL Creatinine (0.6-1.0) mg/dL Est Cr Clr Drug Dosing mL/min Estimated GFR (MDRD) ml/min Glucose (74-106) mg/dL Calcium (8.5-10.1) mg/dL Total Bilirubin (0.2-1.0) mg/dL AST (15-37) IU/L ALT (14-63) IU/L Alkaline Phosphatase (46-116) U/L Total Protein (6.4-8.2) g/dL Albumin (3.4-5.0) g/dL Globulin (2.6-4.0) g/dL Albumin/Globulin Ratio (0.9-1.6) Blood Type O POSITIVE Antibody Screen NEGATIVE Meds: Medications Discontinued Medications Generic Name Dose Route Start Last Admin Trade Name Freq PRN Reason Stop Dose Admin Potassium Chloride 60 meq 10/16/20 19:19 10/16/20 20:03 Potassium Chloride PO 10/16/20 19:20 60 meq ONETIME ONE Administration Departure - Departure Time of Disposition: 22:38 Disposition: Home, Self-Care 01 Condition: Fair Clinical Impression: Hypokalemia - Discharge Information *PRESCRIPTION DRUG MONITORING PROGRAM REVIEWED*: No *COPY OF PRESCRIPTION DRUG MONITORING REPORT IN PATIENT JOY: No Instructions: Hypokalemia Referrals: Tonie Lemus MD [Primary Care Provider] - Forms: ED Department Discharge Additional Instructions: You were evaluated today on an emergent basis. At this time it is uncertain why they requested you come in for a transfusion. Your hemoglobin which is a blood level was normal. In August 2019 your hemoglobin was 8.5 today it was 9.4. Your potassium was mildly decreased at 2.9 however it has returned to normal at 4.7. I do recommend that you follow-up with your primary care physician for further monitoring and treatment. If you have any new or worsening symptoms please return to the emergency department. [facility] - [facility] [id number], [place] [address] [facility] [address] [place] [id number] The patient is informed of any results of their evaluation and diagnostic workup and all questions are answered. They are given discharge instructions and return precautions. The patient is stable for discharge. The patient states they understand and agree with the plan and that they will return if their symptoms get worse or if they have any new concerns. The following information is given to patients seen in the emergency department who are being discharged to home. This information is to outline your options for follow-up care. We provide all patients seen in our emergency department with a follow-up referral. The need for follow-up, as well as the timing and circumstances, are variable depending upon the specifics of your emergency department visit. If you don't have a primary care physician on staff, we will provide you with a referral. We always advise you to contact your personal physician following an emergency department visit to inform them of the circumstance of the visit and for follow-up with them and/or the need for any referrals to a consulting specialist. The emergency department will also refer you to a specialist when appropriate. This referral assures that you have the opportunity for follow-up care with a specialist. All of these measure are taken in an effort to provide you with optimal care, which includes your follow-up. Under all circumstances we always encourage you to contact your private physician who remains a resource for coordinating your care. When calling for follow-up care, please make the office aware that this follow-up is from your recent emergency room visit. If for any reason you are refused follow-up, please contact the [facility] Emergency Department at and asked to speak to the emergency department charge nurse. Sepsis Event Note (ED) - Evaluation Sepsis Screening Result: No Definite Risk
== END 2020-10-16 22:51 | disposition home or self-care (01) ==
LOC: MW.ED 17:30
DX: M79.642 Pain in left hand (principal); M79.641 Pain in right hand; M79.672 Pain in left foot; M79.671 Pain in right foot; E87.6 Hypokalemia; Z88.1 Allergy status to other antibiotic agents; Z88.2 Allergy status to sulfonamides; I10 Essential (primary) hypertension; Z86.73 Personal history of transient ischemic attack (TIA), and cerebral infarction without residual deficits; Z79.01 Long term (current) use of anticoagulants; Z79.899 Other long term (current) drug therapy
CPT/HCPCS: 36415; 80053; 84132; 85025; 85610; 86850; 86900; 86901; 93005; 99285; A9270; 93010; 99283

== ENCOUNTER 2021-09-17 21:13 | Emergency (ER) | payer OTHER ==
[2021-09-17] MEDS ORDERED: Sodium Chloride 0.9% 10 ML Syringe FLUSH PRN (23:06)
[2021-09-17] MEDS ORDERED: Sodium Chloride 0.9% 2.5 ML Syringe FLUSH PRN (23:06)
[2021-09-18] MEDS ORDERED: Apixaban 5 MG Tab PO STA (00:19)
[2021-09-18 00:28] LABS: BLOOD UREA NITROGEN,BUN 4 mg/dL (7.0-18.0); CARBON DIOXIDE,CO2 18.8 mmol/L (21.0-32.0); CHLORIDE,CL 103 mmol/L (98-107); GLUCOSE RANDOM 93 mg/dL (74-106); POTASSIUM,K 3.7 mmol/L (3.5-5.1); SODIUM,NA 138 mmol/L (136-145)
== END 2021-09-18 01:52 | disposition home or self-care (01) ==
LOC: MW.ED 21:13
DX: N93.8 Other specified abnormal uterine and vaginal bleeding (principal); I10 Essential (primary) hypertension; Z88.1 Allergy status to other antibiotic agents; Z88.2 Allergy status to sulfonamides; Z79.01 Long term (current) use of anticoagulants; Z79.899 Other long term (current) drug therapy
CPT/HCPCS: 36415; 80053; 84703; 85025; 85610; 85730; 99284; A9270

== ENCOUNTER 2021-12-31 19:29 | Emergency (ER) | payer OTHER | END 2021-12-31 21:03 | disposition home or self-care (01) | LOC: MW.ED 19:29 | DX: S60.221A Contusion of right hand, initial encounter (principal); I10 Essential (primary) hypertension; Z88.2 Allergy status to sulfonamides; Z88.8 Allergy status to other drugs, medicaments and biological substances; Z79.899 Other long term (current) drug therapy; V89.2XXA Person injured in unspecified motor-vehicle accident, traffic, initial encounter | CPT/HCPCS: 73110-26-RT; 73110-RT; 99284-25 ==

== ENCOUNTER 2023-05-31 15:55 | Emergency (ER) | payer MEDICARE, OTHER ==
[2023-05-31] MEDS ORDERED: Sodium Chloride 0.9% 1,000 ML IV ONE (16:29)
[2023-05-31] MEDS ORDERED: Sodium Chloride 0.9% 2.5 ML Syringe FLUSH PRN (16:29)
[2023-05-31] MEDS ORDERED: Sodium Chloride 0.9% 10 ML Syringe FLUSH PRN (16:29)
[2023-05-31 16:55] LABS: BASOPHILS ABSOLUTE AUTO 0.02 K/uL (0.00-0.20); BASOPHILS PERCENT AUTO 0.2 % (0.0-1.0); EOSINOPHILS ABSOLUTE AUTO 0.05 K/uL (0.00-0.45); EOSINOPHILS PERCENT AUTO 0.6 % (0.0-6.0); HEMATOCRIT 14.2 % (37.0-47.0); IMMATURE GRAN ABSOLUTE AUTO 0.06 K/uL (0.00-0.05); IMMATURE GRAN PERCENT AUTO 0.7 % (0.0-0.4); LYMPHOCYTES ABSOLUTE AUTO 1.91 K/uL (1.00-4.80); LYMPHOCYTES PERCENT AUTO 21.4 % (24.0-44.0); MEAN CORPUSCULAR HEMOGLOBIN 18.2 pg (28.0-32.0); MEAN CORPUSCULAR HGB CONC 28.2 g/dL (32.0-36.0); MEAN CORPUSCULAR VOLUME 64.5 fL (83.0-99.0); MONOCYTES ABSOLUTE AUTO 0.67 K/uL (0.00-0.80); MONOCYTES PERCENT AUTO 7.5 % (0.0-8.0); NEUTROPHILS ABSOLUTE AUTO 6.22 K/uL (1.80-7.70); NEUTROPHILS PERCENT AUTO 69.6 % (41.0-71.0); NRBC ABSOLUTE 0.02 K/uL (0.00-0.02); NRBC PERCENT 0.2 /100WBC (0.0-0.2); PLATELET COUNT,PLT 235 K/uL (150-400); WHITE BLOOD CELL COUNT,WBC 8.93 K/uL (3.9-11.3)
[2023-05-31 17:13] LABS: INR 1.34 (0.86-1.11); PTT,PARTIAL THROMBOPLSTIN TIME 27.4 SEC (23.9-30.7)
[2023-05-31 17:17] LABS: A/G RATIO 0.7 (0.9-1.6); ALBUMIN 3.2 g/dL (3.4-5.0); BILIRUBIN TOTAL 0.4 mg/dL (0.2-1.0); CALCIUM 7.6 mg/dL (8.5-10.1); CREATININE 0.8 mg/dL (0.6-1.0); EST CRCL DRUG DOSING (CG) 64.12 mL/min; POTASSIUM,K 3.3 mmol/L (3.5-5.1); PROTEIN TOTAL,TP 7.8 g/dL (6.4-8.2)
== END 2023-06-01 00:24 | disposition home or self-care (01) ==
LOC: MW.ED 15:55
DX: N93.9 Abnormal uterine and vaginal bleeding, unspecified (principal); I10 Essential (primary) hypertension; Z72.0 Tobacco use; Z88.1 Allergy status to other antibiotic agents; Z88.2 Allergy status to sulfonamides; Z79.01 Long term (current) use of anticoagulants; Z79.899 Other long term (current) drug therapy
CPT/HCPCS: 36415; 36430; 80053; 84703; 85025; 85610; 85730; 86850; 86900; 86901; 86920; 96360; 99284; J3490; J7030; P9016; 99282

== ENCOUNTER 2023-06-18 11:05 | Emergency (ER) | payer MEDICARE ==
[2023-06-18 12:17] LABS: BASOPHILS ABSOLUTE AUTO 0.02 K/uL (0.00-0.20); BASOPHILS PERCENT AUTO 0.3 % (0.0-1.0); EOSINOPHILS ABSOLUTE AUTO 0.04 K/uL (0.00-0.45); EOSINOPHILS PERCENT AUTO 0.6 % (0.0-6.0); HEMATOCRIT 16.8 % (37.0-47.0); IMMATURE GRAN ABSOLUTE AUTO 0.02 K/uL (0.00-0.05); IMMATURE GRAN PERCENT AUTO 0.3 % (0.0-0.4); LYMPHOCYTES ABSOLUTE AUTO 1.11 K/uL (1.00-4.80); LYMPHOCYTES PERCENT AUTO 16.8 % (24.0-44.0); MEAN CORPUSCULAR HEMOGLOBIN 19.4 pg (28.0-32.0); MEAN CORPUSCULAR VOLUME 69.4 fL (83.0-99.0); MONOCYTES ABSOLUTE AUTO 0.49 K/uL (0.00-0.80); MONOCYTES PERCENT AUTO 7.4 % (0.0-8.0); NEUTROPHILS ABSOLUTE AUTO 4.91 K/uL (1.80-7.70); NEUTROPHILS PERCENT AUTO 74.6 % (41.0-71.0); PLATELET COUNT,PLT 207 K/uL (150-400); RED BLOOD CELL COUNT 2.42 M/uL (4.10-5.30); WHITE BLOOD CELL COUNT,WBC 6.59 K/uL (3.9-11.3)
[2023-06-18 12:24] LABS: HEMOGLOBIN 4.7 g/dL (12.0-16.0)
[2023-06-18 12:40] LABS: A/G RATIO 0.7 (0.9-1.6); ALBUMIN 3.2 g/dL (3.4-5.0); BILIRUBIN TOTAL 0.5 mg/dL (0.2-1.0); CALCIUM 8.1 mg/dL (8.5-10.1); CARBON DIOXIDE,CO2 20.5 mmol/L (21.0-32.0); CREATININE 0.7 mg/dL (0.6-1.0); EST CRCL DRUG DOSING (CG) 74.97 mL/min; POTASSIUM,K 3.6 mmol/L (3.5-5.1); PROTEIN TOTAL,TP 8.1 g/dL (6.4-8.2)
== END 2023-06-18 18:38 | disposition home or self-care (01) ==
LOC: MW.ED 11:05
DX: D64.9 Anemia, unspecified (principal); I10 Essential (primary) hypertension; Z79.899 Other long term (current) drug therapy; Z88.1 Allergy status to other antibiotic agents; Z88.2 Allergy status to sulfonamides
CPT/HCPCS: 36415; 36430; 80053; 85025; 86850; 86900; 86901; 86920; 99284; P9016; 99283

== ENCOUNTER 2023-06-24 17:09 | Emergency (ER) | payer MEDICARE ==
[2023-06-24] MEDS ORDERED: Sodium Chloride 0.9% 2.5 ML Syringe FLUSH PRN (17:18)
[2023-06-24] MEDS ORDERED: Sodium Chloride 0.9% 10 ML Syringe FLUSH PRN (17:18)
[2023-06-24 17:41] LABS: BASOPHILS ABSOLUTE AUTO 0.02 K/uL (0.00-0.20); BASOPHILS PERCENT AUTO 0.2 % (0.0-1.0); EOSINOPHILS ABSOLUTE AUTO 0.08 K/uL (0.00-0.45); HEMATOCRIT 17.9 % (37.0-47.0); HEMOGLOBIN 5.2 g/dL (12.0-16.0); IMMATURE GRAN ABSOLUTE AUTO 0.04 K/uL (0.00-0.05); IMMATURE GRAN PERCENT AUTO 0.5 % (0.0-0.4); LYMPHOCYTES ABSOLUTE AUTO 1.68 K/uL (1.00-4.80); MEAN CORPUSCULAR HEMOGLOBIN 22.2 pg (28.0-32.0); MEAN CORPUSCULAR HGB CONC 29.1 g/dL (32.0-36.0); MEAN CORPUSCULAR VOLUME 76.5 fL (83.0-99.0); MEAN PLATELET VOLUME 11.2 fL (9.4-12.3); MONOCYTES ABSOLUTE AUTO 0.44 K/uL (0.00-0.80); MONOCYTES PERCENT AUTO 5.2 % (0.0-8.0); NEUTROPHILS ABSOLUTE AUTO 6.16 K/uL (1.80-7.70); NEUTROPHILS PERCENT AUTO 73.1 % (41.0-71.0); RED BLOOD CELL COUNT 2.34 M/uL (4.10-5.30); WHITE BLOOD CELL COUNT,WBC 8.42 K/uL (3.9-11.3)
[2023-06-24 17:46] LABS: PLATELET COUNT,PLT 207 K/uL (150-400)
[2023-06-24 18:14] LABS: INR 1.46 (0.86-1.11); PTT,PARTIAL THROMBOPLSTIN TIME 26.5 SEC (23.9-30.7)
[2023-06-24 18:24] LABS: A/G RATIO 0.7 (0.9-1.6); ALBUMIN 3.2 g/dL (3.4-5.0); BILIRUBIN TOTAL 0.6 mg/dL (0.2-1.0); CALCIUM 8.3 mg/dL (8.5-10.1); CARBON DIOXIDE,CO2 19.7 mmol/L (21.0-32.0); CREATININE 0.8 mg/dL (0.6-1.0); EST CRCL DRUG DOSING (CG) 63.82 mL/min; POTASSIUM,K 3.2 mmol/L (3.5-5.1); PROTEIN TOTAL,TP 8.1 g/dL (6.4-8.2)
[2023-06-24] MEDS ORDERED: Ondansetron 4 MG/2 ML SDV IVPUSH STA (18:26)
[2023-06-24] MEDS ORDERED: fentaNYL 50 MCG/ML SDV IVPUSH STA (18:26)
== END 2023-06-25 01:22 | disposition home or self-care (01) ==
LOC: MW.ED 17:09
DX: N93.9 Abnormal uterine and vaginal bleeding, unspecified (principal); D64.9 Anemia, unspecified; Z79.01 Long term (current) use of anticoagulants; Z86.73 Personal history of transient ischemic attack (TIA), and cerebral infarction without residual deficits; I10 Essential (primary) hypertension; Z90.49 Acquired absence of other specified parts of digestive tract; Z79.899 Other long term (current) drug therapy; Z88.2 Allergy status to sulfonamides; Z88.1 Allergy status to other antibiotic agents
CPT/HCPCS: 36415; 36430; 80053; 84703; 85025; 85610; 85730; 86850; 86900; 86901; 86920; 96374; 96375; 99284; J2405; J3010; J3490; P9016

== ENCOUNTER 2023-07-16 14:22 | Emergency (ER) | payer MEDICARE ==
[2023-07-16] MEDS ORDERED: Sodium Chloride 0.9% 1,000 ML IV ONE (14:48)
[2023-07-16] MEDS ORDERED: Morphine 4 MG/ML Syringe IVPUSH ONE (14:48)
[2023-07-16] MEDS ORDERED: Ondansetron 4 MG/2 ML SDV IVPUSH ONE (14:48)
[2023-07-16 15:04] LABS: BASOPHILS ABSOLUTE AUTO 0.04 K/uL (0.00-0.20); BASOPHILS PERCENT AUTO 0.5 % (0.0-1.0); EOSINOPHILS ABSOLUTE AUTO 0.09 K/uL (0.00-0.45); EOSINOPHILS PERCENT AUTO 1.1 % (0.0-6.0); HEMATOCRIT 29.2 % (37.0-47.0); HEMOGLOBIN 9.2 g/dL (12.0-16.0); IMMATURE GRAN ABSOLUTE AUTO 0.09 K/uL (0.00-0.05); IMMATURE GRAN PERCENT AUTO 1.1 % (0.0-0.4); LYMPHOCYTES ABSOLUTE AUTO 0.91 K/uL (1.00-4.80); LYMPHOCYTES PERCENT AUTO 10.8 % (24.0-44.0); MEAN CORPUSCULAR HEMOGLOBIN 24.6 pg (28.0-32.0); MEAN CORPUSCULAR HGB CONC 31.5 g/dL (32.0-36.0); MEAN CORPUSCULAR VOLUME 78.1 fL (83.0-99.0); MEAN PLATELET VOLUME 11.4 fL (9.4-12.3); MONOCYTES ABSOLUTE AUTO 0.52 K/uL (0.00-0.80); MONOCYTES PERCENT AUTO 6.2 % (0.0-8.0); NEUTROPHILS ABSOLUTE AUTO 6.75 K/uL (1.80-7.70); NEUTROPHILS PERCENT AUTO 80.3 % (41.0-71.0); PLATELET COUNT,PLT 315 K/uL (150-400); RED BLOOD CELL COUNT 3.74 M/uL (4.10-5.30)
[2023-07-16 15:22] LABS: INR 1.59 (0.86-1.11); PTT,PARTIAL THROMBOPLSTIN TIME 42.9 SEC (23.9-30.7)
[2023-07-16 15:39] LABS: A/G RATIO 0.5 (0.9-1.6); ALBUMIN 2.5 g/dL (3.4-5.0); CALCIUM 8.6 mg/dL (8.5-10.1); CARBON DIOXIDE,CO2 19.8 mmol/L (21.0-32.0); CREATININE 0.8 mg/dL (0.6-1.0); EST CRCL DRUG DOSING (CG) 64.91 mL/min; MAGNESIUM 2.1 mg/dL (1.8-2.4); POTASSIUM,K 3.3 mmol/L (3.5-5.1); PROTEIN TOTAL,TP 7.7 g/dL (6.4-8.2)
[2023-07-16 15:40] LABS: CORONAVIRUS COVID-19 NAA NEGATIVE (NEGATIVE); INFLUENZA A NAA NEGATIVE (NEGATIVE); INFLUENZA B NAA NEGATIVE (NEGATIVE); LACTIC ACID 1.1 mmol/L (0.4-2.0)
[2023-07-16] MEDS ORDERED: Iopamidol 755 MG/ML 500 ML Multipack Bottle IVPUSH STA (16:13)
[2023-07-16] MEDS ORDERED: HYDROmorphone 1 MG/ML Syringe IVPUSH ONE (16:17)
[2023-07-16] MEDS ORDERED: Piperacillin/Tazobactam 4.5 GM in Sodium Chloride 0.9% 100 ML IV ONE (17:22)
[2023-07-16] MEDS ORDERED: fentaNYL 50 MCG/ML SDV IVPUSH ONE (18:08)
== END 2023-07-16 18:50 ==
LOC: MW.ED 14:22
DX: L02.211 Cutaneous abscess of abdominal wall (principal); Z20.822 Contact with and (suspected) exposure to COVID-19; I10 Essential (primary) hypertension; F17.210 Nicotine dependence, cigarettes, uncomplicated; Z86.73 Personal history of transient ischemic attack (TIA), and cerebral infarction without residual deficits; Z90.49 Acquired absence of other specified parts of digestive tract; Z79.899 Other long term (current) drug therapy; Z88.2 Allergy status to sulfonamides; Z88.1 Allergy status to other antibiotic agents
CPT/HCPCS: 0240U; 36415; 74177; 80053; 83605; 83690; 83735; 84484; 85025; 85610; 85730; 86850; 86900; 86901; 87040; 96361; 96365; 96375; 99285; J2270; J2405; J2543; J3010; J3490; J7030; Q9967; 99291

== ENCOUNTER 2024-03-30 01:45 | Emergency (ER) | payer MEDICARE ==
[2024-03-30] MEDS: Ondansetron 4 MG/2 ML SDV IVPUSH ONE (02:41)
[2024-03-30] MEDS: Ketorolac 30 MG/ML SDV IVPUSH ONE (02:41)
[2024-03-30 02:43] LABS: BASOPHILS ABSOLUTE AUTO 0.03 K/uL (0.00-0.20); BASOPHILS PERCENT AUTO 0.4 % (0.0-1.0); EOSINOPHILS ABSOLUTE AUTO 0.02 K/uL (0.00-0.45); EOSINOPHILS PERCENT AUTO 0.2 % (0.0-6.0); HEMATOCRIT 35.1 % (37.0-47.0); HEMOGLOBIN 10.6 g/dL (12.0-16.0); IMMATURE GRAN ABSOLUTE AUTO 0.04 K/uL (0.00-0.05); IMMATURE GRAN PERCENT AUTO 0.5 % (0.0-0.4); LYMPHOCYTES ABSOLUTE AUTO 1.06 K/uL (1.00-4.80); LYMPHOCYTES PERCENT AUTO 12.4 % (24.0-44.0); MEAN CORPUSCULAR HEMOGLOBIN 20.4 pg (28.0-32.0); MEAN CORPUSCULAR HGB CONC 30.2 g/dL (32.0-36.0); MONOCYTES ABSOLUTE AUTO 0.41 K/uL (0.00-0.80); MONOCYTES PERCENT AUTO 4.8 % (0.0-8.0); NEUTROPHILS ABSOLUTE AUTO 6.97 K/uL (1.80-7.70); NEUTROPHILS PERCENT AUTO 81.7 % (41.0-71.0); PLATELET COUNT,PLT 168 K/uL (150-400); WHITE BLOOD CELL COUNT,WBC 8.53 K/uL (3.9-11.3)
[2024-03-30] MEDS: Sodium Chloride 0.9% 2.5 ML Syringe FLUSH PRN (02:50)
[2024-03-30] MEDS: Sodium Chloride 0.9% 10 ML Syringe FLUSH PRN (02:50)
[2024-03-30 03:05] LABS: A/G RATIO 0.8 (0.9-1.6); ALBUMIN 3.8 g/dL (3.4-5.0); BILIRUBIN TOTAL 0.7 mg/dL (0.2-1.0); CALCIUM 9.2 mg/dL (8.5-10.1); CARBON DIOXIDE,CO2 21.9 mmol/L (21.0-32.0); CREATININE 0.7 mg/dL (0.6-1.0); EST CRCL DRUG DOSING (CG) 73.9 mL/min; POTASSIUM,K 3.7 mmol/L (3.5-5.1); PROTEIN TOTAL,TP 8.8 g/dL (6.4-8.2)
[2024-03-30 03:11] LABS: MEAN CORPUSCULAR VOLUME 67.5 fL (83.0-99.0)
[2024-03-30] MEDS: Iopamidol 755 MG/ML 500 ML Multipack Bottle IVPUSH ONE (03:24)
== END 2024-03-30 05:30 | disposition home or self-care (01) ==
LOC: MW.ED 01:45
DX: N83.8 Other noninflammatory disorders of ovary, fallopian tube and broad ligament (principal); R11.0 Nausea; Z90.49 Acquired absence of other specified parts of digestive tract; Z79.899 Other long term (current) drug therapy; Z88.2 Allergy status to sulfonamides; Z88.1 Allergy status to other antibiotic agents; Z90.710 Acquired absence of both cervix and uterus
CPT/HCPCS: 36415; 74177; 76856; 80053; 83690; 85025; 96374; 96375; 99284; J1885; J2405; J3490; Q9967